=== PATIENT | male | born 1965 | race Caucasian/White ===

== ENCOUNTER 2018-06-14 06:49 | Emergency (ER) | payer OTHER, BC ==
[~2018-06-14] VITALS: Ht 180.3 cm; Wt 102.1 kg
[~2018-06-14 06:49] MED LIST: PRILOSEC20 MG PO
== END 2018-06-14 08:10 | disposition home or self-care (01) ==
LOC: ED 06:49
PROC: 0HQGXZZ Repair Left Hand Skin, External Approach (ICD-10-PCS; principal; 2018-06-14)
DX: S61.412A Laceration without foreign body of left hand, initial encounter (principal); W25.XXXA Contact with sharp glass, initial encounter; Y99.0 Civilian activity done for income or pay; K21.9 Gastro-esophageal reflux disease without esophagitis; Z79.899 Other long term (current) drug therapy
CPT/HCPCS: 12002; 90471; 90715; 99282